=== PATIENT | female | born 1990 | race Caucasian/White ===

== ENCOUNTER → 2016-11-13 | Outpatient (CLI) | payer BC | END | disposition home or self-care (01) | LOC: CFH 08:00 | PROVIDERS: ATTEND Family Medicine | DX: R10.9 Unspecified abdominal pain (principal) | CPT/HCPCS: 76700 ==

== ENCOUNTER → 2017-10-22 | Outpatient (CLI) | payer BC | END | disposition home or self-care (01) | LOC: CFH 06:45 | PROVIDERS: ATTEND Family Medicine | DX: R07.81 Pleurodynia (principal); R10.9 Unspecified abdominal pain; R07.89 Other chest pain | CPT/HCPCS: 71111; 76700 ==